=== PATIENT | female | born 1965 | race Asian ===

== ENCOUNTER → 2023-02-15 | Day surgery (SDC) | payer OTHER ==
[~2023-02-15] VITALS: Ht 162.6 cm; Wt 50.0 kg
[~2023-02-15] MED LIST: BALANCED SALT 15 ML OPHTHALMIC IRRIG.SOLN ONE; CYCLOPENTOLATE HCL 1% 2 ML OPHTHALMIC SOLUTION ONE; EPINEPHrine 1:1,000 [1 MG/ML] VIAL ONE; FentaNYL CITRATE PF 100 MCG/2 ML VIAL IVP ONE; HYALURONATE SOD 8.5MG/0.85ML 10 MG/ML SYRINGE IO ONE; KETOROLAC TROMETHAMINE 0.5% 5 ML OPHTHALMIC SOLUTION ONE; LIDOCAINE/PF 1% 2 ML VIAL ONE; MIDAZOLAM HCL 2 MG/2 ML VIAL IVP ONE; MOXIFLOXACIN HCL 0.5% 3 ML OPHTHALMIC SOLUTION ONE; NEOMYCIN/POLYMYXIN B/DEXAMETH 3.5 GM OPHTHALMIC OINTMENT ONE; PHENYLEPHRINE HCL 2.5% 2 ML OPHTHALMIC SOLUTION ONE; POVIDONE-IODINE 5% 30 ML OPHTHALMIC SOLUTION ONE; PROPARACAINE HCL 0.5% 15 ML OPHTHALMIC SOLUTION OD ONE; PrednisoLONE ACETATE 1% 5 ML OPHTHALMIC SUSPENSION ONE; RINGERS SOLUTION,LACTATED 500 ML IV ONE; TETRACAINE HCL/PF 0.5% 4 ML OPHTHALMIC SOLUTION OD ONE; TETRACAINE HCL/PF 0.5% 4 ML OPHTHALMIC SOLUTION OD SCH; TETRACAINE HCL/PF 0.5% 4 ML OPHTHALMIC SOLUTION ONE; TROPICAMIDE 1% 2 ML OPHTHALMIC SOLUTION ONE
[2023-02-15] MEDS: MOXIFLOXACIN HCL 0.5% 3 ML OPHTHALMIC SOLUTION OD SCH ×3 (07:17→07:28)
[2023-02-15] MEDS: CYCLOPENTOLATE HCL 1% 2 ML OPHTHALMIC SOLUTION OD SCH ×3 (07:17→07:27)
[2023-02-15] MEDS: TROPICAMIDE 1% 2 ML OPHTHALMIC SOLUTION OD SCH ×3 (07:17→07:27)
[2023-02-15] MEDS: PHENYLEPHRINE HCL 2.5% 2 ML OPHTHALMIC SOLUTION OD SCH ×3 (07:17→07:28)
[2023-02-15] MEDS: KETOROLAC TROMETHAMINE 0.5% 5 ML OPHTHALMIC SOLUTION OD SCH ×3 (07:18→07:28)
== END | disposition home or self-care (01) ==
LOC: SURGERY 06:11
PROVIDERS: ATTEND Ophthalmology
DX: H25.11 Age-related nuclear cataract, right eye (principal)
CPT/HCPCS: 93005; 66984; J0171; J3010; J3490; J2250; Q9967; J7120; V2632

== ENCOUNTER 2023-04-19 05:12 | Day surgery (SDC) | payer OTHER ==
[~2023-04-19] VITALS: Ht 162.6 cm; Wt 50.0 kg
[~2023-04-19 05:12] MED LIST changes: -BALANCED SALT 15 ML OPHTHALMIC IRRIG.SOLN ONE; -EPINEPHrine 1:1,000 [1 MG/ML] VIAL ONE; -FentaNYL CITRATE PF 100 MCG/2 ML VIAL IVP ONE; -HYALURONATE SOD 8.5MG/0.85ML 10 MG/ML SYRINGE IO ONE; -LIDOCAINE/PF 1% 2 ML VIAL ONE; -MIDAZOLAM HCL 2 MG/2 ML VIAL IVP ONE; -NEOMYCIN/POLYMYXIN B/DEXAMETH 3.5 GM OPHTHALMIC OINTMENT ONE; -POVIDONE-IODINE 5% 30 ML OPHTHALMIC SOLUTION ONE; -PROPARACAINE HCL 0.5% 15 ML OPHTHALMIC SOLUTION OD ONE; -PrednisoLONE ACETATE 1% 5 ML OPHTHALMIC SUSPENSION ONE; -TETRACAINE HCL/PF 0.5% 4 ML OPHTHALMIC SOLUTION OD ONE; -TETRACAINE HCL/PF 0.5% 4 ML OPHTHALMIC SOLUTION OD SCH
[2023-04-19] MEDS ORDERED: HYALURONATE SOD 8.5MG/0.85ML 10 MG/ML SYRINGE IO ONE (05:13)
[2023-04-19] MEDS ORDERED: MIDAZOLAM HCL 2 MG/2 ML VIAL IVP ONE (05:13)
[2023-04-19] MEDS ORDERED: FentaNYL CITRATE PF 100 MCG/2 ML VIAL IVP ONE (05:13)
[2023-04-19] MEDS ORDERED: PROPARACAINE HCL 0.5% 15 ML OPHTHALMIC SOLUTION ONE (05:39)
[2023-04-19] MEDS: PROPARACAINE HCL 0.5% 15 ML OPHTHALMIC SOLUTION OS ONE (05:48)
[2023-04-19] MEDS: CYCLOPENTOLATE HCL 1% 2 ML OPHTHALMIC SOLUTION OS SCH (05:48)
[2023-04-19] MEDS: KETOROLAC TROMETHAMINE 0.5% 5 ML OPHTHALMIC SOLUTION OS SCH (05:48)
[2023-04-19] MEDS: TETRACAINE HCL/PF 0.5% 4 ML OPHTHALMIC SOLUTION OS SCH (05:48)
[2023-04-19] MEDS: MOXIFLOXACIN HCL 0.5% 3 ML OPHTHALMIC SOLUTION OS SCH (05:48)
[2023-04-19] MEDS: PHENYLEPHRINE HCL 2.5% 2 ML OPHTHALMIC SOLUTION OS SCH (05:49)
[2023-04-19] MEDS: TETRACAINE HCL/PF 0.5% 4 ML OPHTHALMIC SOLUTION OS ONE (05:49)
[2023-04-19] MEDS: TROPICAMIDE 1% 2 ML OPHTHALMIC SOLUTION OS SCH (05:54)
[2023-04-19] MEDS: RINGERS SOLUTION,LACTATED 500 ML IV ONE (06:07)
[2023-04-19] MEDS ORDERED: TETRACAINE HCL/PF 0.5% 4 ML OPHTHALMIC SOLUTION ONE (06:20)
[2023-04-19] MEDS ORDERED: EPINEPHrine 1:1,000 [1 MG/ML] VIAL ONE (06:20)
[2023-04-19] MEDS ORDERED: LIDOCAINE/PF 1% 2 ML VIAL ONE (06:21)
[2023-04-19] MEDS ORDERED: BALANCED SALT 15 ML OPHTHALMIC IRRIG.SOLN ONE (06:21)
[2023-04-19] MEDS ORDERED: NEOMYCIN/POLYMYXIN B/DEXAMETH 3.5 GM OPHTHALMIC OINTMENT ONE (06:23)
[2023-04-19] MEDS ORDERED: PrednisoLONE ACETATE 1% 5 ML OPHTHALMIC SUSPENSION ONE (06:33)
[2023-04-25] MEDS ORDERED: RINGERS SOLUTION,LACTATED 500 ML IV ONE (05:00)
== END 2023-04-19 08:00 | disposition home or self-care (01) ==
LOC: SURGERY 05:12
PROVIDERS: ATTEND Ophthalmology
DX: H25.12 Age-related nuclear cataract, left eye (principal); Z79.899 Other long term (current) drug therapy; Z98.41 Cataract extraction status, right eye
CPT/HCPCS: 66984; J0171; J3010; J3490; J2250; J7120; V2632